=== PATIENT | female | born 1990 | race Caucasian/White ===

== ENCOUNTER → 2017-07-04 | Outpatient (CLI) | payer BC ==
[~2017-07-04] MED LIST: AC160U10 PO; AC325T; APAPSUSP PO; CEPH250S38; DOCU50LI PO; DOXY100C2 PO; HYDR15SO6 PO; Ibuprofen PO; NITR25CA2; NUVA RING VG; PNV#1COM6 PO; PREN1TAB71 PO
--- NOTE | 2017-07-04 19:28 | Diagnostic Imaging Report ---
EXAMINATION: Ultrasound of the right breast limited. FINDINGS: There are no prior studies available for comparison. By history, the patient has nipple discharge on the right. The ultrasound examination of the retroareolar region fails to show any discrete solid or cystic mass. There is no intraductal mass identified either. IMPRESSION: 1. There is no evidence for malignancy and there is no abnormality to account for the patient's nipple discharge. 2. If clinical concern regarding an underlying abnormality persists and further imaging is desired, then MRI will be recommended. ACR BI-RADS Category 1: Negative. Dictated by: Dictated on workstation # [id number]
== END ==
LOC: RAD 13:55
PROVIDERS: ATTEND Family Medicine
DX: N64.52 Nipple discharge (principal)